=== PATIENT | male | born 1950 | race Two or more races ===

== ENCOUNTER 2017-08-19 10:21 | Emergency (ER) | payer OTHER ==
[~2017-08-19] VITALS: Ht 182.9 cm; Wt 85.4 kg
[2017-08-19 11:33] VITALS: BP 122/42
== END 2017-08-19 11:36 | disposition home or self-care (01) ==
LOC: ED 10:21
DX: K91.840 Postprocedural hemorrhage of a digestive system organ or structure following a digestive system procedure (principal); I10 Essential (primary) hypertension